=== PATIENT | male | born 1975 | race Caucasian/White ===

== ENCOUNTER 2022-02-19 02:02 | Emergency (ER) | payer MEDICAID ==
[~2022-02-19] VITALS: Ht 180.3 cm; Wt 94.0 kg
[2022-02-19] MEDS ORDERED: METOCLOPRAMIDE HCL 10MG/2ML VIAL IV STA (03:04)
[2022-02-19] MEDS ORDERED: MAGNESIUM/ALUMINUM HYDROXIDE/SIMETHICONE 30ML UDC PO STA (03:04)
[2022-02-19] MEDS ORDERED: FAMOTIDINE 20MG/2ML VIAL IV STA (03:04)
[2022-02-19] MEDS ORDERED: SODIUM CHLORIDE 0.9% 1,000 ML IV ONE (03:15)
[2022-02-19 03:47] LABS: BASOPHILS % 0.4 % (0.0-2.0); EOSINOPHILS % 0.2 % (0.0-5.0); HEMATOCRIT. 47.8 % (42.0-52.0); LYMPHOCYTES % 17.8 % (20.0-50.0); MEAN CORPUSCULAR HEMOGLOBIN 32.1 pg (28.0-32.0); MEAN CORPUSCULAR VOLUME 90.2 fL (80.0-94.0); MEAN PLATELET VOLUME 7.4 fl (7.4-10.4); NEUTROPHILS % 76.6 % (40.0-76.0); PLATELET 419 x1000/uL (130-400); RED CELL DISTRIBUTION WIDTH 13.9 % (11.6-14.6)
[2022-02-19 03:48] LABS: CLARITY URINE CLEAR (CLEAR); COLOR URINE YELLOW (YELLOW); KETONES URINE 1+ (NEGATIVE); LEUKOCYTE ESTERASE URINE NEGATIVE (NEGATIVE); NITRITE URINE NEGATIVE (NEGATIVE); OCCULT BLOOD URINE NEGATIVE (NEGATIVE); PROTEIN URINE NEGATIVE (NEGATIVE); SPECIFIC GRAVITY URINE 1.012 (1.005-1.030)
[2022-02-19 03:56] LABS: CHLORIDE 100 mEq/L (98-107)
[2022-02-19 04:02] LABS: ETHANOL BLOOD < 10 mg/dL
[2022-02-19 05:45] VITALS: BP 138/75
[2022-02-19] MEDS ORDERED: FAMO20TA8 MT (05:46)
== END 2022-02-19 05:45 | disposition home or self-care (01) ==
LOC: ER 02:02
DX: R10.13 Epigastric pain (principal); R11.2 Nausea with vomiting, unspecified
CPT/HCPCS: 36415; 71045; 80053; 80320; 81003; 83690; 85025; 93005; 96361; 96374; 96375; 99285; J2765; J3490; J7030; G0480